=== PATIENT | male | born 1945 | race African-American/Black ===

== ENCOUNTER 2017-07-18 04:05 | Inpatient (IN) | payer MEDICARE, BC ==
[~2017-07-18] VITALS: Ht 180.3 cm; Wt 76.7 kg
[2017-07-18] VITALS (9 sets, daily range): BP systolic 103–140; BP diastolic 62–108; BMI 23.6
--- NOTE | ~2017-07-18 | HEMODYNAMI ---
PATIENT:YRIS VALENZUELA MEDICAL RECORD: [id number] : 49 LOCATION:D[facility] D.2308 ADMISSION DATE: 07/18/17 Generatedon:07/18/201719:51 Patient name: YRIS VALENZUELA Patient #: [id number] SSN: : 1945 Date of study: 07/18/2017 Page: Of Hemodynamic Procedure Report Patient Data Patient Demographics Procedure consent was obtained First Name: YRIS Gender: Male Last Name: BIANCA : 1945 Middle Initial: D Age: 72 year(s) Patient #: [id number] Race: Black Additional ID: [id number] Contact details [address]: [address] [place] [address] State: [place] City: [place] Zip code: [address] Past Medical History Allergies Allergen Reaction Date Comments Reported Aspirin 07/18/2017 Admission Admission Data Admission Date: 07/18/2017 Admission Time: 4:05 Room #: D.2308 Weight (lbs.): 169 Weight (kg.): 76.66 Procedure Procedure Types Cath Procedure Peripheral Cath Diagnostic Procedure Cath Peripheral Abd/Extremity Visceral/Mesenteric Mesenteric Arteriogram (Abd Artery) Procedure Description Procedure Date Procedure Date: 07/18/2017 Procedure Start Time: 18:36 Procedure Staff Name Function Hannah Carpio MD Performing Physician Trinity Prince RT Cap Jewel Plate Assembler Trinity Prince RT Monitor Aditya Sánchez RT Scrub Diana Chau RN Nurse Procedure Data Cath Procedure Fluoroscopy Diagnostic fluoroscopy Total fluoroscopy Time: time: 16.8 min 16.8 min Diagnostic fluoroscopy Total fluoroscopy dose: dose: 1461 mGy 1461 mGy Contrast Material Contrast Material Type Amount (ml) Isovue 300 145 Diagnostic catheters Device Type Used For End Catheter Placement Angiodynamics SOS OMNI 2 NON B 5FR 65CM catheter ([id number]) Procedure Medications Medication Administration Route Dosage Heparin Flush Bag added to field 3 bags (1000units/500ml NS) Oxygen NC 3 l/min Lidocaine 1% added to field 20 Versed 1 mg Fentanyl 50 mcg Versed 1 mg Fentanyl 50 mcg Hemodynamics Rest Pre Cath Intra NCS Post Cath Vital Signs Time Heart Resp SPO2 etCO2 NIBP Rhythm Pain Sedation Rate (ipm) (%) (mmHg) (mmHg) Status Level (bpm) 18:33:25 84 16 100 31.7 130/72(96) NSR 0 (11) 10(A) , No pain 18:40:57 92 16 100 29.5 110/75(91) NSR 0 (11) 10(A) , No pain 18:52:01 93 15 34.8 118/70(86) NSR 0 (11) 10(A) , No pain 19:00:04 92 17 32.5 112/72(85) NSR 0 (11) 10(A) , No pain 19:15:36 95 16 0 120/74(85) NSR 0 (11) 10(A) , No pain 19:30:29 90 15 34.7 127/76(91) NSR 0 (11) 10(A) , No pain Medications Time Medication Route Dose Verified Delivered Reason Notes Effe ctiveness by by 18:27:14 Heparin Flush added 3bags Diana M J Long used for Bag to Lay RN MD procedure (1000units/500ml field NS) 18:27:37 Oxygen NC 3 Diana Diana used for l/min Lay RN Lay wafer line worker 18:27:58 Lidocaine 1% added 20ml Diana M J Long for local to vial Lay RN MD anesthetic field 18:34:34 Versed 1 mg Diana Diana for Lay RN Lay RN sedation 18:36:45 Fentanyl 50 Diana Diana for mcg Lay RN Lay RN sedation 18:50:40 Versed 1 mg Diana Diana for Lay RN Lay RN sedation 18:50:47 Fentanyl 50 Diana Diana for mcg Lay RN Lay RN sedation Procedure Log Time Note 18:03:50 Patient Weight : 169 lbs 18:04:35 Use device set IR Diagnostic 18:23:09 Time tracking: Call back 18:23:35 Plan of Care:Hemodynamics will remain stable., Cardiac rhythm will remain stable., Comfort level will be maintained., Respiratory function will remain adequate., Patient/ family verbilizes understanding of procedure., Procedure tolerated without complication., Recovers from procedure without complications.. 18:24:03 Patient received from ICU to IR Alert and oriented. Tansferred to table in Supine position. 18:24:16 Signed procedure consent form obtained from patient. 18:24:32 - 18:24:44 H&P Date Dictated: 07/18/2017 New H&P dictated by physician.. 18:24:46 Pre-procedure instructions explained to patient. 18:24:47 Pre-op teaching completed and patient verbalized understanding. 18:24:51 Family unavailable. 18:24:59 Patient NPO since Midnight. 18:25:09 Patient allergic to Aspirin 18:25:15 Is the patient allergic to Iodine/contrast media? No. 18:25:18 Is patient on blood thinner?No 18:25:21 Patient diabetic? No. 18:25:25 - 18:25:27 ----Pre-sedation anethsthesia assessment.---- 18:25:30 Previous problem with sedation/anesthesia? No ? 18:25:34 Snore? Yes 18:25:39 Sleep apnea? No 18:25:42 Deviated septum? No 18:25:44 Opens mouth fully? Yes 18:25:46 Sticks out tongue? Yes 18:25:49 Airway obstruction? No ? 18:25:53 Dentures? Yes ? 18:25:56 - 18:26:07 Pre procedure: right dorsailis pedis pulse 2+ Normal; easily identifiable; not easily obliterated 18:26:14 Pre procedure: right posterior tibial pulse 2+ Normal; easily identifiable; not easily obliterated 18:26:29 - 18::30 DOC .035 wire ([id number]) opened to sterile field. 18:26:31 Micropuncture VSI 4FR kit opened to sterile field. 18:26:32 SHEATH 5FR Sheffield (LGN265) opened to sterile field. 18::33 Sterile Angiographic Pack opened to sterile field. 18:26:34 Bag Decanter () opened to sterile field. 18:26:35 ACIST Manifold (61917) opened to sterile field. 18:26:36 ACIST Hand Control (93637) opened to sterile field. 18:26:37 ACIST Syringe (89688) opened to sterile field. 18:26:45 - 18::14 Heparin Flush Bag (1000units/500ml NS) 3bags added to field was administered by Hannah Carpio MD; used for procedure; ::37 Oxygen 3 l/min NC was administered by Diana Chau RN; used for procedure ; ::58 Lidocaine 1% 20ml vial added to field was administered by Hannah Carpio MD; for local anesthetic; 18:28:01 - 18:32:45 Physician arrived 18:33:02 --------ALL STOP TIME OUT------ 18:33:02 Final Timeout: patient, procedure, and site verified with staff and physician. All members of the team are in agreement. 18:33:14 Sedation plan: IV Moderate Sedation Medication:Versed, Fentanyl 18:34:34 Versed 1 mg was administered by Diana Chau RN; for sedation; 18:36:32 Procedure started. 18:36:32 Full Disclosure recording started 18:36:36 Local anesthetic to right femoral artery with Lidocaine 1% by Hannah Carpio MD.INITIAL ACCESS ONLY 18:36:39 Arterial access obtained using ultrasound guidance. 18:36:45 Fentanyl 50 mcg was administered by Diana Chau RN; for sedation; 18:43:16 GLIDE WIRE ANGLE 180cm (AU4265) opened to sterile field. 18:43:29 TORQUE DEVICE PLASTIC .038 ( TD01) opened to sterile field. 18:50:40 Versed 1 mg was administered by Diana Chau RN; for sedation; 18:50:47 Fentanyl 50 mcg was administered by Diana Chau RN; for sedation; 19:00:23 A AngioShoeDazzlenamNjini OMNI 2 NON B 5FR 65CM catheter ([id number]) was advanced over the wire and used for . 19:13:55 COPILOT Valve Control (5956440) opened to sterile field. 19:13:57 TRANSEND STEERABLE wire ([id number]) opened to sterile field. 19:13:57 RENEGADE STAIGHT 150CM microcatheter ([id number]) opened to sterile field. 19:34:[address] 1-Way Male Rotating (Y51025) opened to sterile field. 19:39:02 Procedure ended.(Physican Out) 19:43:34 Fluoroscopy time 16.80 minutes. 19:43:40 Flurop Dose total: 1461 19:43:40 Fluoroscopy dose: 1461 mGy 19:46:44 Contrast amount:Isovue 300 145ml. 19:46:47 Procedure and supply charges have been captured, reviewed, submitted an d are correct. 19:50:34 Report given to ICU. Device Usage Item Name Manufacture Quantity Catalog Hospital Part Current Minim al Lot# / Number Charge Number Stock Stock Serial# Code DOC .035 wire Retail Convergence Medical 1 [id number] 217475 673308 5 [id number] ([id number]) Micropuncture VSI VASCULAR 1 7266V 052420 660532 5 VSI 4FR kit SOLUTIONS SHEATH 5FR Terumo 1 VZV988 608480 951031 772833 40 Sheffield (NRD985) Sterile Cardinal 1 [id number] 541594 292521 5 Angiographic Health Pack Bag Decanter Microtek 1 2002S 194231 14449 442977 5 (2001S) Medical Inc. ACIST Acist Medical 1 93888 708635 932431 515368 5 Manifold Systems Inc (10723) ACIST Hand Acist Medical 1 55968 800891 730982 917224 5 Control Systems Inc (31903) ACIST Syringe Acist Medical 1 10024 230117 273069 510580 20 (94640) Systems Inc GLIDE WIRE Terumo 1 SW2282 433598 811935 667027 5 ANGLE 180cm (FD7892) TORQUE DEVICE Jefferson 1 TD01 522598 913936 163318 5 PLASTIC .038 Scientific ( TD01) Angiodynamics Angiodynamics 1 [id number] 932285 76161 110261 5 SOS OMNI 2 NON B 5FR 65CM catheter (13097267) COPILOT Valve Colón 1 6900997 174090 284334 048075 5 Control Vascular (7280414) TRANSEND Jefferson 1 [id number] 290633 719244 5 [id number] STEERABLE Scientific wire ([id number]) RENEGADE Jefferson 1 [id number] 454322 203815 5 [id number] STAIGHT 150CM Scientific microcatheter ([id number]) [facility] 1 D41527 209034 14628 580014 [address] 1-Way Male Rotating (H04498) Signature Audit [place] Stage Time Signature Unsigned Intra-Procedure 07/18/2017 Trinity Prince 7:51:01 PM RT(R) Signatures Monitor : Trinity Prince RT Signature : Date : Time : [facility] [address] [place] [address]
[2017-07-18 06:24] LABS: BASOPHILS 0.2 % (0-2); EOSINOPHILS 0.9 % (0-7); HEMATOCRIT 34.3 % (42.0-54.0); HEMOGLOBIN 11.3 g/dL (13.5-17.5); IMMATURE GRANULOCYTES 0.2 % (0-5); MCH 27.2 pg (26.0-34.0); MCHC 32.9 g/dL (31.0-37.0); MCV 82.7 fL (80.0-100.0); MEAN PLATELET VOLUME 9.6 fL (7.4-10.4); MONOCYTES 5.4 % (2-11); NEUTROPHILS 72.3 % (40-80); PLATELET COUNT 195 10x3/uL (130-400); RBC 4.15 10x6/uL (4.20-6.10); WBC 6.5 10x3/uL (4.8-10.8)
[2017-07-18 06:41] LABS: ALBUMIN 2.8 g/dL (3.4-5.0); ANION GAP 10.4 mmol/L (8-16); BILIRUBIN - TOTAL 0.35 mg/dL (0.2-1.3); CALCIUM 8.1 mg/dL (8.5-10.1); CARBON DIOXIDE 27.2 mmol/L (21.0-32.0); CREATININE - SERUM 1.6 mg/dL (0.6-1.3); POTASSIUM - SERUM 3.6 mmol/L (3.5-5.1); PROTEIN - SERUM 6.3 g/dL (6.4-8.2)
[2017-07-18 06:44] LABS: INR 1.18 (0.85-1.17); PROTIME 14.5 SECONDS (11.6-15.0)
[2017-07-18 06:57] LABS: APTT 30.5 SECONDS (22.8-39.4)
[2017-07-18 10:41] LABS: % SATURATION 8 % (15-55); IRON 25 ug/dl (35-150); TOTAL IRON BIND CAPACITY 297 ug/dl (260-445); UNSAT IRON BIND CAPACITY 272 ug/dl (150-375)
[2017-07-18 12:13] LABS: HEMATOCRIT 32.7 % (42.0-54.0); HEMOGLOBIN 10.8 g/dL (13.5-17.5)
[2017-07-18 14:17] LABS: BASOPHILS 0.2 % (0-2); EOSINOPHILS 2.1 % (0-7); HEMATOCRIT 27.4 % (42.0-54.0); HEMOGLOBIN 8.8 g/dL (13.5-17.5); IMMATURE GRANULOCYTES 0.2 % (0-5); MCH 26.7 pg (26.0-34.0); MCHC 32.1 g/dL (31.0-37.0); MEAN PLATELET VOLUME 9.3 fL (7.4-10.4); MONOCYTES 8.6 % (2-11); NEUTROPHILS 59.9 % (40-80); PLATELET COUNT 159 10x3/uL (130-400); WBC 5.2 10x3/uL (4.8-10.8)
[2017-07-18 21:10] LABS: HEMATOCRIT 31.7 % (42.0-54.0); HEMOGLOBIN 10.4 g/dL (13.5-17.5)
[2017-07-19] VITALS (24 sets, daily range): BP systolic 97–121; BP diastolic 51–75
[2017-07-19 02:06] LABS: BASOPHILS 0 % (0-2); EOSINOPHILS 0 % (0-7); HEMATOCRIT 29.6 % (42.0-54.0); HEMOGLOBIN 9.7 g/dL (13.5-17.5); IMMATURE GRANULOCYTES 0.2 % (0-5); LYMPHOCYTES 3.8 % (15-50); MCH 26.3 pg (26.0-34.0); MCHC 32.8 g/dL (31.0-37.0); MEAN PLATELET VOLUME 8.5 fL (7.4-10.4); MONOCYTES 5.3 % (2-11); NEUTROPHILS 90.7 % (40-80); RBC 3.69 10x6/uL (4.20-6.10); RDW 15.5 % (11.5-14.5)
[2017-07-19 02:11] LABS: MCV 80.2 fL (80.0-100.0); PLATELET COUNT 117 10x3/uL (130-400); WBC 11.5 10x3/uL (4.8-10.8)
[2017-07-19 02:21] LABS: INR 1.31 (0.85-1.17); PROTIME 15.8 SECONDS (11.6-15.0)
[2017-07-19 02:29] LABS: ALBUMIN 2.3 g/dL (3.4-5.0); ANION GAP 1.5 mmol/L (8-16); BILIRUBIN - DIRECT 0.16 mg/dL (0.00-0.30); BILIRUBIN - INDIRECT 0.61 mg/dL (0.00-1.00); BILIRUBIN - TOTAL 0.77 mg/dL (0.2-1.3); CALCIUM 7.4 mg/dL (8.5-10.1); CARBON DIOXIDE 24.7 mmol/L (21.0-32.0); CREATININE - SERUM 1.5 mg/dL (0.6-1.3); POTASSIUM - SERUM 3.2 mmol/L (3.5-5.1); PROTEIN - SERUM 5.3 g/dL (6.4-8.2)
[2017-07-19 10:47] LABS: HEMATOCRIT 28.8 % (42.0-54.0); HEMOGLOBIN 9.4 g/dL (13.5-17.5)
[2017-07-19 16:50] LABS: HEMATOCRIT 28.4 % (42.0-54.0); HEMOGLOBIN 9.6 g/dL (13.5-17.5)
[2017-07-19 22:24] LABS: HEMATOCRIT 26.3 % (42.0-54.0); HEMOGLOBIN 8.5 g/dL (13.5-17.5)
[2017-07-20] VITALS (30 sets, daily range): BP systolic 101–143; BP diastolic 63–91; Ht 180.3 cm; Wt 76.7 kg
[2017-07-20 05:12] LABS: CARBON DIOXIDE 27.4 mmol/L (21.0-32.0); CREATININE - SERUM 1.4 mg/dL (0.6-1.3); POTASSIUM - SERUM 3.4 mmol/L (3.5-5.1)
[2017-07-20 05:20] LABS: CALCIUM 6.9 mg/dL (8.5-10.1)
[2017-07-20 07:10] LABS: BASOPHILS 0.3 % (0-2); EOSINOPHILS 3.1 % (0-7); HEMOGLOBIN 9.5 g/dL (13.5-17.5); IMMATURE GRANULOCYTES 0.1 % (0-5); LYMPHOCYTES 14.3 % (15-50); MCH 27.5 pg (26.0-34.0); MCHC 32.8 g/dL (31.0-37.0); MEAN PLATELET VOLUME 9.7 fL (7.4-10.4); MONOCYTES 11.6 % (2-11); NEUTROPHILS 70.6 % (40-80); PLATELET COUNT 125 10x3/uL (130-400); RBC 3.45 10x6/uL (4.20-6.10); RDW 15.8 % (11.5-14.5)
[2017-07-20 07:11] LABS: MCV 84.1 fL (80.0-100.0); WBC 8.6 10x3/uL (4.8-10.8)
[2017-07-20 10:45] LABS: HEMATOCRIT 29.1 % (42.0-54.0); HEMOGLOBIN 9.6 g/dL (13.5-17.5)
[2017-07-20 16:14] LABS: HEMATOCRIT 30.3 % (42.0-54.0)
[2017-07-20 22:15] LABS: HEMATOCRIT 28.8 % (42.0-54.0); HEMOGLOBIN 9.6 g/dL (13.5-17.5)
[2017-07-21] VITALS (10 sets, daily range): BP systolic 101–124; BP diastolic 68–79
[2017-07-21 06:39] LABS: ANION GAP 10.6 mmol/L (8-16); CALCIUM 7.7 mg/dL (8.5-10.1); CARBON DIOXIDE 26.8 mmol/L (21.0-32.0); CREATININE - SERUM 1.4 mg/dL (0.6-1.3); POTASSIUM - SERUM 3.4 mmol/L (3.5-5.1)
[2017-07-21 08:20] LABS: FOLATE (FOLIC ACID) - SERUM 10.8 ng/mL (>3.0)
[2017-07-21 10:22] LABS: HEMATOCRIT 31.8 % (42.0-54.0); HEMOGLOBIN 10.5 g/dL (13.5-17.5)
[2017-07-21 10:23] LABS: BASOPHILS 0.2 % (0-2); EOSINOPHILS 5.6 % (0-7); HEMATOCRIT 28.2 % (42.0-54.0); HEMOGLOBIN 9.4 g/dL (13.5-17.5); IMMATURE GRANULOCYTES 0.2 % (0-5); LYMPHOCYTES 19.3 % (15-50); MCH 27.5 pg (26.0-34.0); MCHC 33.3 g/dL (31.0-37.0); MCV 82.5 fL (80.0-100.0); MEAN PLATELET VOLUME 9.9 fL (7.4-10.4); NEUTROPHILS 62.7 % (40-80); PLATELET COUNT 138 10x3/uL (130-400); RBC 3.42 10x6/uL (4.20-6.10); RDW 15.3 % (11.5-14.5); WBC 6.6 10x3/uL (4.8-10.8)
[2017-07-21 11:24] LABS: BASOPHILS 0.3 % (0-2); IMMATURE GRANULOCYTES 0.1 % (0-5); LYMPHOCYTES 16.2 % (15-50); MCH 27.6 pg (26.0-34.0); MCHC 33.3 g/dL (31.0-37.0); MCV 82.8 fL (80.0-100.0); MEAN PLATELET VOLUME 9.9 fL (7.4-10.4); MONOCYTES 9.2 % (2-11); NEUTROPHILS 70.2 % (40-80); PLATELET COUNT 152 10x3/uL (130-400); RBC 3.77 10x6/uL (4.20-6.10); RDW 15.3 % (11.5-14.5)
[2017-07-22 04:00] VITALS: BP 99/64
[2017-07-22 06:32] LABS: BASOPHILS 0.2 % (0-2); EOSINOPHILS 5.8 % (0-7); HEMATOCRIT 28.1 % (42.0-54.0); HEMOGLOBIN 9.3 g/dL (13.5-17.5); IMMATURE GRANULOCYTES 0.2 % (0-5); LYMPHOCYTES 19.7 % (15-50); MCH 27.1 pg (26.0-34.0); MCHC 33.1 g/dL (31.0-37.0); MCV 81.9 fL (80.0-100.0); MEAN PLATELET VOLUME 9.7 fL (7.4-10.4); MONOCYTES 10.7 % (2-11); NEUTROPHILS 63.4 % (40-80); PLATELET COUNT 160 10x3/uL (130-400); RBC 3.43 10x6/uL (4.20-6.10); RDW 15.1 % (11.5-14.5); WBC 5.3 10x3/uL (4.8-10.8)
[2017-07-22 06:53] LABS: ANION GAP 10.5 mmol/L (8-16); CALCIUM 8.1 mg/dL (8.5-10.1); CARBON DIOXIDE 25.8 mmol/L (21.0-32.0); CREATININE - SERUM 1.4 mg/dL (0.6-1.3); POTASSIUM - SERUM 3.3 mmol/L (3.5-5.1)
[2017-07-22 08:00] VITALS: BP 116/74
[2017-07-22 12:34] VITALS: BP 114/79
[2017-07-22] MEDS ORDERED: ZOCOR5 MG PO (13:32)
[2017-07-22] MEDS ORDERED: SYNTHROID75 MCG PO (13:32)
[2017-07-22] MEDS ORDERED: FLOMAX0.4 MG PO ×2 (13:33→13:34)
[2017-07-22] MEDS ORDERED: PEPCID AC20 MG PO (13:33)
[2017-07-27] MEDS ORDERED: ZOCOR20 MG PO (11:52)
[2017-07-27] MEDS ORDERED: HCTZ25 MG PO (11:52)
[2017-07-27] MEDS ORDERED: VITAMIN D250000 UNIT PO (11:53)
[2017-07-27] MEDS ORDERED: DETROL LA4 MG PO (11:53)
[2017-07-27] MEDS ORDERED: FLUTICASONE PRO16 GM NASAL (11:54)
[2017-07-28] MEDS ORDERED: CENTRUM SILVER1 TA1 PO (06:47)
[2017-07-28] MEDS ORDERED: VITAMIN B-122500 MCG PO (06:48)
[2017-07-28] MEDS ORDERED: FISH OIL 1,2001 CAP PO (06:49)
== END 2017-07-22 17:12 | disposition home or self-care (01) | DRG 378 ==
LOC: D.ICU 04:05 → D.EDHOLD 04:05 → D.ICU 12:31 → D.M2 07-21 14:11
PROVIDERS: Internal Medicine Gastroenterology; Internal Medicine Nephrology; Specialist
PROC: B4141ZZ Fluoroscopy of Superior Mesenteric Artery using Low Osmolar Contrast (ICD-10-PCS; 2017-07-18)
PROC: 3E063XZ Introduction of Vasopressor into Central Artery, Percutaneous Approach (ICD-10-PCS; 2017-07-18)
PROC: B4151ZZ Fluoroscopy of Inferior Mesenteric Artery using Low Osmolar Contrast (ICD-10-PCS; principal; 2017-07-18 18:00)
DX: K57.91 Diverticulosis of intestine, part unspecified, without perforation or abscess with bleeding (principal); D62 Acute posthemorrhagic anemia; N17.9 Acute kidney failure, unspecified; E78.5 Hyperlipidemia, unspecified; I10 Essential (primary) hypertension; E03.9 Hypothyroidism, unspecified; N40.0 Benign prostatic hyperplasia without lower urinary tract symptoms; Z87.891 Personal history of nicotine dependence

== ENCOUNTER 2017-07-28 06:55 | Inpatient (IN) | payer MEDICARE, BC ==
[2017-07-27 12:43] LABS: BASOPHILS 0.4 % (0-2); EOSINOPHILS 1.6 % (0-7); HEMATOCRIT 34.9 % (42.0-54.0); HEMOGLOBIN 11.4 g/dL (13.5-17.5); LYMPHOCYTES 21.6 % (15-50); MCH 27.4 pg (26.0-34.0); MCHC 32.7 g/dL (31.0-37.0); MCV 83.9 fL (80.0-100.0); MEAN PLATELET VOLUME 8.9 fL (7.4-10.4); MONOCYTES 10.1 % (2-11); NEUTROPHILS 66.3 % (40-80); RBC 4.16 10x6/uL (4.20-6.10); RDW 15.3 % (11.5-14.5); WBC 5.5 10x3/uL (4.8-10.8)
[2017-07-27 12:52] LABS: ANION GAP 12.6 mmol/L (8-16); CALCIUM 8.8 mg/dL (8.5-10.1); CARBON DIOXIDE 27.8 mmol/L (21.0-32.0); CREATININE - SERUM 1.5 mg/dL (0.6-1.3); POTASSIUM - SERUM 3.4 mmol/L (3.5-5.1)
[2017-07-27 12:59] LABS: PLATELET COUNT 267 10x3/uL (130-400)
[~2017-07-28] VITALS: Ht 180.3 cm; Wt 75.8 kg
[2017-07-28] VITALS (11 sets, daily range): BP systolic 95–158; BP diastolic 56–82; BMI 23.3
--- NOTE | ~2017-07-28 | OP ---
PATIENT NAME: YRIS VALENZUELA MEDICAL RECORD: [id number] :49 LOCATION:D.[facility]20 ADMISSION DATE:07/28/17 SURGEON: ALEKSANDAR MCGARRY MD DATE OF OPERATION: 07/28/2017 PREOPERATIVE DIAGNOSES: 1. Diverticular disease. 2. Hypertension. 3. Hyperthyroidism. 4. Anemia of lower gastrointestinal bleed. POSTOPERATIVE DIAGNOSES: 1. Diverticular disease. 2. Hypertension. 3. Hyperthyroidism. 4. Anemia of lower gastrointestinal bleed. PROCEDURE: Hand-assisted laparoscopic sigmoid colectomy. SURGEON: Aleksandar Mcgarry MD REPORT OF PROCEDURE: The patient's abdomen was prepped and draped in sterile fashion. A cutdown was made in the suprapubic region in the midline. Electrocautery was used to dissect through the subcutaneous tissues and fascia and we entered the abdominal cavity. A Gelport was inserted with a 5-mm trocar within it. With this, we were able to insufflate the abdomen and placed a 5-mm trocar in the right lateral abdomen and a final 12-mm trocar just anterior to the right anterior superior iliac crest. The patient's sigmoid colon was elevated and any attachments to the lateral wall were taken down using electrocautery. We continued our dissection down towards the superior rectum. We were able to take down any attachments which were present. At this point, we had free floating sigmoid colon. A window was made in the mesocolon at the rectosigmoid junction and a 55 blue load Endo-CHANTAL stapler was used to transect the bowel. A 55 white load Endo-CHANTAL stapler times 2 were used to take down the mesentery of the sigmoid colon. At this point, we had the sigmoid colon completely freed up. We then used electrocautery to take down the white line of Toldt and was able to mobilize the left colon medially. The sigmoid colon was eviscerated through the wound and using electrocautery, we transected this and using a clamp and tie technique, we took down the remainder of the mesentery. This bowel was sent off for permanent specimen. A 2-0 Prolene was used to make a pursestring in the distal colon and a 29 EEA anvil was inserted and this was tied down tightly and placed back into the abdominal cavity. The multiple anal dilators were placed through the anus and rectum finally followed by the 29 EEA stapler and EEA stapler was used to perform an end-to-end anastomosis. At the conclusion there were 2 good rings of tissue present in the stapler and in checking the anastomosis under water, there was no sign of leak with air instilled through the rectum. We then placed a few Lemberted 3-0 silks as an overstitch in the anastomotic site. At this point, the abdomen was reinsufflated and reinspected one last time to assure there was no sign of any bleeding, which there was none. We irrigated out the abdomen thoroughly with normal saline. We then removed all of the trocars. The midline fascia was closed with running #1 loop PDS times 2. The 12-mm trocar site fascia was closed with a single interrupted 0 Vicryl. The wounds were then irrigated out and reapproximated with interrupted 3-0 Vicryl and the skin incisions were closed with mar. OPERATIVE REPORT [id number] YRIS VALENZUELA COMPLICATIONS: None. CONDITION: Stable. ANESTHESIA: General endotracheal and local. BLOOD LOSS: Minimal. TRANSINT:[id number] Voice Confirmation ID: [id number] DOCUMENT ID: [id number] ALEKSANDAR MCGARRY MD at 1413 CC: JANKI SUAREZ MD [id number] DICTATION DATE: 07/28/17 1137 INDIGO VAT TENDER CLOTH: 07/28/17 1154 DIS IN 07/31/17 [facility] [address] [place] [address]
[~2017-07-28 06:55] MED LIST: CENTRUM SILVER1 TA1 PO; DETROL LA4 MG PO; FISH OIL 1,2001 CAP PO; FLOMAX0.4 MG PO; FLUTICASONE PRO16 GM NASAL; HCTZ25 MG PO; PEPCID AC20 MG PO; SYNTHROID75 MCG PO; VITAMIN B-122500 MCG PO; VITAMIN D250000 UNIT PO; ZOCOR20 MG PO; ZOCOR5 MG PO
[2017-07-29 04:00] VITALS: BP 94/56
[2017-07-29 06:08] LABS: BASOPHILS 0.2 % (0-2); IMMATURE GRANULOCYTES 0.2 % (0-5); MCH 27.1 pg (26.0-34.0); MCHC 32.2 g/dL (31.0-37.0); MEAN PLATELET VOLUME 9.1 fL (7.4-10.4); MONOCYTES 11.9 % (2-11); NEUTROPHILS 63.7 % (40-80); PLATELET COUNT 232 10x3/uL (130-400); RDW 15.3 % (11.5-14.5); WBC 4.8 10x3/uL (4.8-10.8)
[2017-07-29 06:17] LABS: ANION GAP 8.9 mmol/L (8-16); CALCIUM 7.3 mg/dL (8.5-10.1); CARBON DIOXIDE 27.5 mmol/L (21.0-32.0); CREATININE - SERUM 1.4 mg/dL (0.6-1.3); HEMATOCRIT 24.2 % (42.0-54.0); HEMOGLOBIN 7.8 g/dL (13.5-17.5); POTASSIUM - SERUM 3.4 mmol/L (3.5-5.1); RBC 2.88 10x6/uL (4.20-6.10)
[2017-07-29 09:11] VITALS: BP 103/58
[2017-07-29 12:46] VITALS: BP 102/67
[2017-07-29 13:15] VITALS: Ht 180.3 cm; Wt 75.8 kg
[2017-07-29 16:46] VITALS: BP 95/56
[2017-07-29 20:00] VITALS: BP 89/43
[2017-07-30] VITALS (12 sets, daily range): BP systolic 87–143; BP diastolic 43–87
[2017-07-30 06:05] LABS: ANION GAP 10.1 mmol/L (8-16); CALCIUM 7.5 mg/dL (8.5-10.1); CARBON DIOXIDE 25.5 mmol/L (21.0-32.0); CREATININE - SERUM 1.4 mg/dL (0.6-1.3); POTASSIUM - SERUM 3.6 mmol/L (3.5-5.1)
[2017-07-30 06:50] LABS: BASOPHILS 0.4 % (0-2); HEMATOCRIT 21.5 % (42.0-54.0); IMMATURE GRANULOCYTES 0.2 % (0-5); MCH 27.4 pg (26.0-34.0); MCHC 32.1 g/dL (31.0-37.0); MCV 85.3 fL (80.0-100.0); MONOCYTES 12.7 % (2-11); NEUTROPHILS 60.7 % (40-80); PLATELET COUNT 211 10x3/uL (130-400); RBC 2.52 10x6/uL (4.20-6.10); RDW 15.6 % (11.5-14.5); WBC 4.7 10x3/uL (4.8-10.8)
[2017-07-30 06:59] LABS: HEMOGLOBIN 6.9 g/dL (13.5-17.5)
[2017-07-31] VITALS: BP 135/85
[2017-07-31 00:56] LABS: APPEARANCE CLEAR (CLEAR); BACTERIA NONE SEEN /hpf (NONE SEEN); BILIRUBIN NEGATIVE (NEGATIVE); COLOR YELLOW (YELLOW); EPITHELIAL CELLS NSEEN /hpf (0-5); GLUCOSE NEGATIVE (NEGATIVE); KETONE NEGATIVE (NEGATIVE); NITRITE NEGATIVE (NEGATIVE); PROTEIN TRACE mg/dL (NEGATIVE); RED CELLS - URINE 0-5 /hpf (0-5); UROBILINOGEN NORMAL (NORMAL); WHITE CELLS - URINE NSEEN /hpf (0-5)
[2017-07-31 04:00] VITALS: BP 125/80
[2017-07-31 05:00] LABS: BASOPHILS 0.3 % (0-2); EOSINOPHILS 3.8 % (0-7); IMMATURE GRANULOCYTES 0.3 % (0-5); LYMPHOCYTES 17.2 % (15-50); MCH 28.1 pg (26.0-34.0); MCHC 33.6 g/dL (31.0-37.0); MCV 83.7 fL (80.0-100.0); MEAN PLATELET VOLUME 8.8 fL (7.4-10.4); MONOCYTES 7.5 % (2-11); NEUTROPHILS 70.9 % (40-80); PLATELET COUNT 202 10x3/uL (130-400)
[2017-07-31 05:08] LABS: HEMATOCRIT 29.2 % (42.0-54.0); HEMOGLOBIN 9.8 g/dL (13.5-17.5); RBC 3.49 10x6/uL (4.20-6.10); WBC 6.8 10x3/uL (4.8-10.8)
[2017-07-31 05:12] LABS: CALCIUM 7.8 mg/dL (8.5-10.1); CARBON DIOXIDE 27.2 mmol/L (21.0-32.0); CREATININE - SERUM 1.1 mg/dL (0.6-1.3); POTASSIUM - SERUM 3.2 mmol/L (3.5-5.1)
[2017-07-31 08:09] VITALS: BP 130/82
[2017-07-31] MEDS ORDERED: ULTRAM50 MG PO (09:51)
== END 2017-07-31 13:47 | disposition home or self-care (01) | DRG 330 ==
LOC: D.MS 06:55 → D.SDCHOLD 06:55 → D.MS 11:58
PROVIDERS: Surgery
PROC: 0DTN0ZZ Resection of Sigmoid Colon, Open Approach (ICD-10-PCS; principal; 2017-07-28 09:45)
DX: K57.30 Diverticulosis of large intestine without perforation or abscess without bleeding (principal); D62 Acute posthemorrhagic anemia; I10 Essential (primary) hypertension; E05.90 Thyrotoxicosis, unspecified without thyrotoxic crisis or storm